=== PATIENT | male | born 1945 | race Caucasian/White ===

== ENCOUNTER 2017-04-23 08:38 | Day surgery (SDC) | payer OTHER | END 2017-04-23 23:01 | disposition home or self-care (01) | LOC: US 08:38 | PROVIDERS: Internal Medicine Gastroenterology; Radiology Diagnostic Radiology | PROC: 0FB03ZX Excision of Liver, Percutaneous Approach, Diagnostic (ICD-10-PCS; principal; 2017-04-23 10:00) | DX: K75.81 Nonalcoholic steatohepatitis (NASH) (principal); K74.0 Hepatic fibrosis; R74.8 Abnormal levels of other serum enzymes; E11.9 Type 2 diabetes mellitus without complications; I10 Essential (primary) hypertension; K74.60 Unspecified cirrhosis of liver | CPT/HCPCS: 47000; 76942; 83540; 88307; 88313 ==

== ENCOUNTER 2023-03-09 16:49 | Emergency (ER) | payer OTHER ==
[~2023-03-09] VITALS: Ht 182.9 cm; Wt 111.1 kg
[2023-03-09 18:49] VITALS: BP 123/78
== END 2023-03-09 18:41 | disposition home or self-care (01) ==
LOC: ER 16:49
DX: R07.89 Other chest pain (principal); E86.0 Dehydration; E11.9 Type 2 diabetes mellitus without complications; K70.31 Alcoholic cirrhosis of liver with ascites; R74.8 Abnormal levels of other serum enzymes
CPT/HCPCS: 36415; 80053; 82140; 83605; 85025; 85610; 85730; 99283

== ENCOUNTER 2023-03-22 15:33 | Inpatient (IN) | payer OTHER ==
[~2023-03-22] VITALS: Ht 182.9 cm; Wt 98.9 kg
[2023-03-22 16:02] LABS: BASOPHILS ABSOLUTE AUTO 0.03 K/mm3 (0.00-0.23); BASOPHILS PERCENT AUTO 0 % (0-2); EOSINOPHILS ABSOLUTE AUTO 0.04 K/mm3 (0.00-0.68); EOSINOPHILS PERCENT AUTO 0 % (0-6); Hematocrit 29.8 % (37.0-53.0); Hemoglobin 10.1 g/dL (13.5-17.5); IMMATURE GRAN ABSOLUTE AUTO 0.04 K/mm3 (0.00-0.10); IMMATURE GRAN PERCENT AUTO 0 % (0-1); LYMPHOCYTES ABSOLUTE AUTO 1.47 K/mm3 (0.84-5.20); LYMPHOCYTES PERCENT AUTO 14 % (21-46); MONOCYTES ABSOLUTE AUTO 0.77 K/mm3 (0.16-1.47); MONOCYTES PERCENT AUTO 7 % (4-13); Mean Corpuscular HGB 35.8 pg (26.0-34.0); Mean Corpuscular HGB Conc 33.9 g/dL (31.5-36.5); Mean Corpuscular Volume 106 fL (80-100); Mean Platelet Volume 9.6 fL (9.1-12.4); NEUTROPHILS PERCENT AUTO 78 % (41-73); Platelet Count 170 K/mm3 (150-400); RDW Coefficient Variation 15.6 % (11.7-14.2); RDW Standard Deviation 59.7 fL (35.1-46.3); Red Blood Cell Count 2.82 M/mm3 (4.30-5.90); White Blood Cell Count 10.75 K/mm3 (4.00-11.30)
[2023-03-22 17:06] LABS: Albumin, Blood 2.1 g/dL (3.4-5.0); Albumin/Globulin Ratio 0.4 (0.8-1.8); Bilirubin, Total 2.3 mg/dL (0.1-1.0); Bun/Creatinine Ratio 24.4 (12.0-20.0); Calcium, Blood 7.9 mg/dL (8.5-10.1); Creatinine, Blood 3.61 mg/dL (0.60-1.20); Globulin, Blood 5.3 g/dL (2.2-4.0); Potassium, Blood 5.6 mmol/L (3.5-5.5); Total Protein, Blood 7.4 g/dL (6.4-8.2)
[2023-03-22 18:58] LABS: Albumin/Globulin Ratio 0.4 (0.8-1.8); Bilirubin, Direct 1.2 mg/dL (0.0-0.3); Bilirubin, Indirect 1.1 mg/dL (0.1-0.7); Bilirubin, Total 2.3 mg/dL (0.1-1.0); Globulin, Blood 5.3 g/dL (2.2-4.0); Magnesium, Blood 2.7 mg/dL (1.6-2.4); Total Protein, Blood 7.3 g/dL (6.4-8.2)
[2023-03-22 18:59] LABS: Source, Urine Clean Catch
[2023-03-22 19:05] LABS: Appearance, Urine Hazy (Clear); Bilirubin, Urine Neg (Neg); Blood, Urine Neg (Neg); Color, Urine Yellow (P-Yellow); Glucose Qualitative, Urine Neg (Neg); Ketones, Urine Neg (Neg); Leukocyte Esterase, Urine Neg (Neg); Nitrite, Urine Neg (Neg); Protein, Urine Neg (Neg); Urobilinogen, Urine NORM (Normal)
[2023-03-22 19:11] LABS: International Normalized Ratio 1.52; Prothrombin Time Results 15.6 Sec (9.7-11.5)
[2023-03-22 19:12] LABS: Bacteria Few /hpf; Red Blood Cells, Urine 0-2 /hpf (0-2)
[2023-03-22 19:13] LABS: Squamous Epithelial Cells Rare /hpf (Few)
[2023-03-22] MEDS ORDERED: ALLOPURINOL100 M1 PO (19:43)
[2023-03-22] MEDS ORDERED: POTCHL20ER PO (19:43)
[2023-03-22] MEDS ORDERED: ALDACTONE100 MG PO (19:43)
[2023-03-22] MEDS ORDERED: AMLODIPINE BESY10 MG PO (19:43)
[2023-03-22] MEDS ORDERED: FUROSEMIDE40 MG PO (19:43)
[2023-03-22] MEDS ORDERED: ATOR10 PO (19:44)
[2023-03-22] MEDS ORDERED: LISI20 PO (19:44)
[2023-03-22 19:59] LABS: PCO2 Arterial 28.6 mmHg (35-45); PO2 Arterial 75.5 mmHg (80-100); pH Blood Arterial 7.46 (7.35-7.45)
[2023-03-22 22:05] VITALS: BP 120/83
[2023-03-23 02:33] VITALS: BP 87/52
[2023-03-23 04:50] VITALS: BP 96/66
[2023-03-23 05:26] LABS: Hematocrit 26.2 % (37.0-53.0); Hemoglobin 8.7 g/dL (13.5-17.5)
[2023-03-23 05:48] LABS: Alanine Aminotransfer (ALT/SGP 22 U/L (12-78); Albumin, Blood 1.9 g/dL (3.4-5.0); Albumin/Globulin Ratio 0.4 (0.8-1.8); Alk Phos 105 U/L (50-136); Anion Gap 6 mmol/L (6-16); Aspartate Aminotrans (AST/SGOT 35 U/L (12-37); Bilirubin, Total 2.4 mg/dL (0.1-1.0); Blood Urea Nitrogen 85 mg/dL (8-24); Bun/Creatinine Ratio 24.9 (12.0-20.0); CO2, Blood 23 mmol/L (21-32); Calcium, Blood 7.6 mg/dL (8.5-10.1); Chloride, Blood 110 mmol/L (98-108); Creatinine, Blood 3.42 mg/dL (0.60-1.20); Globulin, Blood 4.8 g/dL (2.2-4.0); Glomerular Filtration Rate 18 (60-); Glucose, Blood 114 mg/dL (70-99); Magnesium, Blood 2.6 mg/dL (1.6-2.4); Phosphorus, Blood 4.7 mg/dL (2.5-4.9); Potassium, Blood 5.4 mmol/L (3.5-5.5); Sodium, Blood 139 mmol/L (136-145); Total Protein, Blood 6.7 g/dL (6.4-8.2)
[2023-03-23 07:22] VITALS: BP 104/65
--- NOTE | 2023-03-23 09:00 | NUR ---
pt laying in bed, at bedside, a/ox4, pleasant and cooperative with care, follows commands well, denies pain, lungs are clear dim in bases, resp even and unlabored, no cough noted, on r/a, hrr, murmur noted, edema noted to b/l let, ppp+1, cap refill <3sec, vs stable, afebrile, iv site is clear and patent, btx4, abd distended, somewhat firm, report last bm two days ago, and is voiding via valencia cath, urine is clear froy, skin slightly jaundice, has a sore to his coccyx with mepilex in place, snehal gomez call light in reach.
[2023-03-23 12:41] VITALS: BP 104/56
[2023-03-23 14:45] VITALS: BP 111/72
--- NOTE | 2023-03-23 18:59 | NUR ---
pt resting in bed most of the day, no complaints of pain, has asked to be repositioned a few times, no acute changes this shift, call light in reach.
[2023-03-23 20:35] VITALS: BP 110/70
[2023-03-24 04:27] VITALS: BP 101/66
--- NOTE | 2023-03-24 04:34 | NUR ---
1900: ASSUMED CARE OF PT, BEDSIDE REPORT RECEIVED FROM VARGHESE RN. PT IS FOUND TO BE LAYING IN BED ON HIS LEFT SIDE. A/O, BREATHING IS AND SHALLOW, UNLABORED. ABDOMEN IS DISTENDED AND FIRM. PT DENIES DISCOMFORT DURING THE SHIFT. COUGHING OFF/ON. HONEY PROVIDED WITH POSSITIVE EFFECT. PT WAS ALBE TO SLEEP. CATHETER CARE PROVIDED, DRESSING TO COCCYX CHANGED.PT DENIES PAIN. SAFETY MEASURES TAKEN, CALL LIGHT AND BEDSIDE TABLE WTIHIN REACH. NEEDS ADDRESSED THROUGHOUT SHIFT.
[2023-03-24 05:42] LABS: Hematocrit 26.4 % (37.0-53.0)
[2023-03-24 06:50] LABS: Albumin, Blood 2.2 g/dL (3.4-5.0); Anion Gap 7 mmol/L (6-16); Blood Urea Nitrogen 83 mg/dL (8-24); Bun/Creatinine Ratio 27.7 (12.0-20.0); CO2, Blood 22 mmol/L (21-32); Calcium, Blood 7.6 mg/dL (8.5-10.1); Chloride, Blood 109 mmol/L (98-108); Glomerular Filtration Rate 21 (60-); Glucose, Blood 129 mg/dL (70-99); Magnesium, Blood 2.5 mg/dL (1.6-2.4); Phosphorus, Blood 4.8 mg/dL (2.5-4.9); Potassium, Blood 4.4 mmol/L (3.5-5.5); Sodium, Blood 138 mmol/L (136-145)
[2023-03-24 07:17] VITALS: BP 110/72
[2023-03-24 13:20] VITALS: BP 94/57
[2023-03-24 15:30] VITALS: BP 114/68
[2023-03-24 17:28] VITALS: BP 112/69
--- NOTE | 2023-03-24 17:53 | NUR ---
SHIFT SUMMARY: PATIENT A/OX4, ANSWER TO QUESTIONS APPROPRIATELY AND ABLE TO MAKE NEEDS KNOWN. PATIENT IS CALM, PLEASANT AND COOPERATIVE c CARE. PATIENT ABLE TO SIT UP IN THE RECLINER CHAIR TODAY FOR ABOUT 5 HRS AND TRNASFERRED BACK IN BED c SBA AND FWW. PATIENT HAS PLUS 2 EDEMA TO BLE'S, PLUS 2 PITTING EDEMA TO FEET, ABDOMEN IS FIRM AND MODERATE DISTENDED. PATIENT RECEIVED 2 DOSE OF ALBUMIN, IV DIURITICS AND SCHEDULED MEDS PER EMAR. PATIENT HAS RICHARDS CATHETER FOR ACUTE RETENTION, PATENT AND DRAINING YELLOW c A TOTAL OF 1500 MLS URINE OUTPUT THIS SHIFT. PATIENT REPORTS DRY NON PRODUCTIVE COUGH, STATED "I FEEL LIKE THE PLEGHM JUST SITTING DOWN MY THROAT AND I CANNOT GET RID OF IT." NOTIFIED DR. RICHARDSON REGARDING THIS ISSUE. RECEIVED ORDER GUAIFENESIN PO 600 MG BID, GIVEN TO PATIENT c SLIGHT EFFECT. PATIENT HAS NO COMPLAINTS OR DENIES ANY NEW CONCERN THIS SHIFT. VITAL SIGNS REVIEWED. PIV TO RAC SALINE LOCKED. CALL LIGHT IN REACH.
[2023-03-25 02:33] VITALS: BP 94/62
--- NOTE | 2023-03-25 04:10 | NUR ---
1900: ASSUMED CARE OF PT, REPORT RECEIVED FROM DAY SHIFT RN. PT IS FOUND TO A/O, LAYING IN BED WITH HOB ELEVATED. INDWELLING CATHETER IN PLACE, DRAINING CLEAR YELLOW URINE. RICHARDS CARE AND STAT LOCK CHANGED BY REACTOR OPERATOR AT START OF SHIFT, PT TOLERATED WELL. REPORTS PRESSURE IN ABDOMEN IS DECREASED TODAY FROM DIURESIS. ABLE TO MOVE SELF IN BED WITH SOME DIFFICULTY, ASSISTED NEEDED. PT WITH COUGH IN CLAIMS ASSOCIATE HOURS. HONEY PROVIDED WITH RESOLUTION OF COUGH. NEEDS ADDRESSED THROUGHOUT SHIFT. CALL LIGHT AND BEDSIDE TABLE WITHIN REACH. BED ALARM IS ON.
[2023-03-25 06:03] LABS: Hematocrit 27.6 % (37.0-53.0); Hemoglobin 9.3 g/dL (13.5-17.5)
[2023-03-25 06:25] LABS: Albumin, Blood 2.3 g/dL (3.4-5.0); Anion Gap 5 mmol/L (6-16); Blood Urea Nitrogen 76 mg/dL (8-24); Bun/Creatinine Ratio 30.2 (12.0-20.0); CO2, Blood 26 mmol/L (21-32); Calcium, Blood 7.8 mg/dL (8.5-10.1); Chloride, Blood 108 mmol/L (98-108); Creatinine, Blood 2.52 mg/dL (0.60-1.20); Glomerular Filtration Rate 26 (60-); Glucose, Blood 128 mg/dL (70-99); Magnesium, Blood 2.3 mg/dL (1.6-2.4); Phosphorus, Blood 4.5 mg/dL (2.5-4.9); Potassium, Blood 3.9 mmol/L (3.5-5.5); Sodium, Blood 139 mmol/L (136-145)
[2023-03-25 08:34] VITALS: BP 115/69
[2023-03-25 12:55] VITALS: BP 101/60
[2023-03-25] MEDS ORDERED: GUAI600T33 PO (14:22)
[2023-03-25] MEDS ORDERED: BUME2 PO (14:22)
[2023-03-25] MEDS ORDERED: MIRALAX17 GM PO (14:23)
[2023-03-25] MEDS ORDERED: MIDO5 PO (14:23)
--- NOTE | 2023-03-25 14:58 | NUR ---
SHIFT/DISCHARGE SUMMARY: PATIENT A/OX4, CALM, PLEASANT AND COOPERATIVE c CARE. PATIENT USES CALL LIGHT APPROPRIATELY AND ABLE TO MAKE NEEDS KNOWN. PATIENT DENIES CP/PRESSURE, SOB, DIZZINESS, AND GENERALIZED PAIN. PATIENT HAS OCCASIONAL NONPRODUCTIVE COUGH. PATIENT RECEIVED ONE DOSE OF IV ALBUMIN, IV DIURETICS AND SCHEDULED MEDS PER EMAR. PATIENT ABDOMINAL DISTENTION, LEGS AND FEET EDEMA HAS IMPROVED. PATIENT HAS RICHARDS FOR ACUTE RETENTION WAS PLACED IN ED, PATENT AND DRAINING YELLOW c A TOTAL OF 1000 MLS URINE OUTPUT THIS SHIFT. PER DR. RICHARDSON PATIENT WILL BE DISCHARGING c RICHARDS AND TO FOLLOW c UROLOGIST. PATIENT KIDNEY FUNCTIONS SLIGHTLY IMPROVED. PER DR. DOBBINS IT'S OKAY FOR PATIENT TO BE DISCHARGE AND TO FOLLOW c HIM ON SUNDAY AT 1400. PATIENT AGREED c THE PLAN OF CARE AND REQUESTED TO GO HOME TODAY. PIV TO JARRED MANND. PATIENT DISCHARGE HOME. DISCHARGE INSTRUCTIONS PACKET GIVEN TO PATIENT/DAUGHTER AT BEDSIDE. EDUCATE PATIENT/DAUGHTER REGARDING ADMITTING DX'S OF ACUTE KIDNEY INJURY, S/S, TX, FR OF 1L, TAKE THE MEDICATION PRESCRIBED, TO FOLLOW-UP c DR. DOBBINS ON SUNDAY AT [address] MARTIN'S OFFICE TO MAKE AN APPOINTMENT, AND CATHETER CARE. PATIENT AND DAUGHTER VERBALIZES UNDERSTANDING AND NO FURTHER QUESTIONS. RX WAS FAXED TO PATIENT PREFERRED PHARMACY ([facility] ALL PATIENT PERSONAL BELONGINGS WERE SENT HOME c THE PATIENT. PATIENT LEFT THE ROOM AT 1500 AND WAS TRANSPORTED VIA WHEELCHAIR BY JANINA JEAN-BAPTISTE TO PATIENT ENTRANCE.
== END 2023-03-25 14:55 | disposition home or self-care (01) | DRG 682 ==
LOC: ER 15:33 → MEDS 19:53
PROVIDERS: Internal Medicine Nephrology; Physician Assistant; Student in an Organized Health Care Education/Training Program; ADMIT Internal Medicine
DX: N17.9 Acute kidney failure, unspecified (principal); K76.7 Hepatorenal syndrome; E87.20 Acidosis, unspecified; R18.8 Other ascites; E87.3 Alkalosis; E87.5 Hyperkalemia; E11.22 Type 2 diabetes mellitus with diabetic chronic kidney disease; I12.9 Hypertensive chronic kidney disease with stage 1 through stage 4 chronic kidney disease, or unspecified chronic kidney disease; N18.9 Chronic kidney disease, unspecified; D63.1 Anemia in chronic kidney disease; F10.10 Alcohol abuse, uncomplicated; K74.60 Unspecified cirrhosis of liver; K42.9 Umbilical hernia without obstruction or gangrene; I95.9 Hypotension, unspecified; E88.09 Other disorders of plasma-protein metabolism, not elsewhere classified; M10.9 Gout, unspecified; R33.9 Retention of urine, unspecified; Z79.811 Long term (current) use of aromatase inhibitors; Z79.899 Other long term (current) drug therapy; Z71.51 Drug abuse counseling and surveillance of drug abuser; Z79.4 Long term (current) use of insulin; Z98.890 Other specified postprocedural states
CPT/HCPCS: 36415; 36600; 51702; 51798; 71046; 76770; 80053; 80069; 80076; 81001; 82550; 82803; 82947; 83605; 83735; 83880; 84100; 84300; 84550; 85014; 85018; 85025; 85610; 93005; 93010; 96361; 96374; 96375; 99285-25; A9270; G0103; J0881; J1644; J1815; J2354; J7060; J7799; P9047

== ENCOUNTER → 2023-03-30 | Outpatient (CLI) | payer OTHER ==
[~2023-03-30] MED LIST: ALDACTONE100 MG PO; ALLOPURINOL100 M1 PO; AMLODIPINE BESY10 MG PO; ATOR10 PO; BUME2 PO; FUROSEMIDE40 MG PO; GUAI600T33 PO; LISI20 PO; MIDO5 PO; MIRALAX17 GM PO; POTCHL20ER PO
[2023-03-30 15:34] LABS: Creatinine Urine 34.9 mg/dL (27.00-270.00); Microalbumin, Urine Quant. 11.1 mg/L (0.000-20.000); Protein, Urine Quantitative 7.4 mg/dL (0.0-11.9)
== END | disposition home or self-care (01) ==
LOC: LAB SHORT 10:50 → LAB 10:50 → LAB FUT 03-27 15:45
PROVIDERS: Internal Medicine Nephrology
DX: N18.30 Chronic kidney disease, stage 3 unspecified (principal); D63.1 Anemia in chronic kidney disease; N25.81 Secondary hyperparathyroidism of renal origin; E55.9 Vitamin D deficiency, unspecified; E78.00 Pure hypercholesterolemia, unspecified; R76.9 Abnormal immunological finding in serum, unspecified; R94.6 Abnormal results of thyroid function studies; D51.8 Other vitamin B12 deficiency anemias; D52.8 Other folate deficiency anemias
CPT/HCPCS: 81050; 82043; 82570; 84156

== ENCOUNTER 2023-04-14 08:36 | Inpatient (IN) | payer OTHER ==
[~2023-04-14] VITALS: Ht 182.9 cm; Wt 93.0 kg
[2023-04-14] VITALS (7 sets, daily range): BP systolic 76–103; BP diastolic 55–74
[2023-04-14] MEDS ORDERED: FUROSEMIDE40 MG PO (09:06)
[2023-04-14] MEDS ORDERED: SPIR25 PO (09:07)
[2023-04-14 09:38] LABS: BASOPHILS ABSOLUTE AUTO 0.02 K/mm3 (0.00-0.23); BASOPHILS PERCENT AUTO 0 % (0-2); EOSINOPHILS ABSOLUTE AUTO 0.02 K/mm3 (0.00-0.68); EOSINOPHILS PERCENT AUTO 0 % (0-6); Hematocrit 28.6 % (37.0-53.0); Hemoglobin 9.5 g/dL (13.5-17.5); IMMATURE GRAN ABSOLUTE AUTO 0.04 K/mm3 (0.00-0.10); IMMATURE GRAN PERCENT AUTO 0 % (0-1); LYMPHOCYTES ABSOLUTE AUTO 1.35 K/mm3 (0.84-5.20); LYMPHOCYTES PERCENT AUTO 10 % (21-46); MONOCYTES ABSOLUTE AUTO 0.67 K/mm3 (0.16-1.47); MONOCYTES PERCENT AUTO 5 % (4-13); Mean Corpuscular HGB 36.4 pg (26.0-34.0); Mean Corpuscular HGB Conc 33.2 g/dL (31.5-36.5); Mean Corpuscular Volume 110 fL (80-100); Mean Platelet Volume 10.3 fL (9.1-12.4); NEUTROPHILS ABSOLUTE AUTO 11.51 K/mm3 (1.96-9.15); NEUTROPHILS PERCENT AUTO 85 % (41-73); NRBC ABSOLUTE 0.04 K/mm3 (0.00-0.02); NRBC Auto 0.3 /100 WBC (0.0-0.2); Platelet Count 96 K/mm3 (150-400); RDW Coefficient Variation 19.4 % (11.7-14.2); RDW Standard Deviation 75.1 fL (35.1-46.3); Red Blood Cell Count 2.61 M/mm3 (4.30-5.90); White Blood Cell Count 13.61 K/mm3 (4.00-11.30)
[2023-04-14 09:56] LABS: Albumin, Blood 1.7 g/dL (3.4-5.0); Albumin/Globulin Ratio 0.4 (0.8-1.8); Bilirubin, Total 6.3 mg/dL (0.1-1.0); Creatinine, Blood 1.32 mg/dL (0.60-1.20); Globulin, Blood 4.8 g/dL (2.2-4.0); Potassium, Blood 4.5 mmol/L (3.5-5.5); Total Protein, Blood 6.5 g/dL (6.4-8.2)
[2023-04-14 12:42] LABS: Influenza A, PCR NEGATIVE (NEGATIVE); Influenza B, PCR NEGATIVE (NEGATIVE); Resp Syncytial Virus, PCR NEGATIVE (NEGATIVE); SARS-Cov-2 (COVID-19) PCR, MMC NEGATIVE (NEGATIVE)
--- NOTE | 2023-04-14 17:03 | NUR ---
I ASSUMED CARE OF THE PT. REPORT RECIEVED FROM BRENDAN Daniel RN.
[2023-04-14 20:01] LABS: Source, Urine Foley catheter
[2023-04-14 20:10] LABS: Blood, Urine 5+ (Neg); Glucose Qualitative, Urine Neg (Neg); Ketones, Urine 1+ (Neg); Leukocyte Esterase, Urine 3+ (Neg); Nitrite, Urine Pos (Neg); Protein, Urine 4+ (Neg); Urobilinogen, Urine 4+ (Normal)
[2023-04-14 20:17] LABS: Appearance, Urine Hazy (Clear); Bilirubin, Urine 2+ (Neg); Color, Urine Amber (P-Yellow)
[2023-04-14 20:18] LABS: Bacteria Many /hpf; Squamous Epithelial Cells Few /hpf (Few); Transitional Epithelial Cells Rare /hpf (0-Rare); White Blood Cells, Urine 25-50 /hpf (0-5)
[2023-04-15] VITALS (15 sets, daily range): BP systolic 73–190; BP diastolic 39–90
[2023-04-15 04:05] LABS: BASOPHILS ABSOLUTE AUTO 0.02 K/mm3 (0.00-0.23); BASOPHILS PERCENT AUTO 0 % (0-2); EOSINOPHILS PERCENT AUTO 0 % (0-6); Hematocrit 29.7 % (37.0-53.0); Hemoglobin 10.1 g/dL (13.5-17.5); IMMATURE GRAN ABSOLUTE AUTO 0.09 K/mm3 (0.00-0.10); IMMATURE GRAN PERCENT AUTO 1 % (0-1); LYMPHOCYTES ABSOLUTE AUTO 1.75 K/mm3 (0.84-5.20); LYMPHOCYTES PERCENT AUTO 10 % (21-46); MONOCYTES PERCENT AUTO 6 % (4-13); Mean Corpuscular HGB 36.5 pg (26.0-34.0); Mean Corpuscular Volume 107 fL (80-100); Mean Platelet Volume 10.3 fL (9.1-12.4); NEUTROPHILS ABSOLUTE AUTO 14.71 K/mm3 (1.96-9.15); NEUTROPHILS PERCENT AUTO 84 % (41-73); NRBC ABSOLUTE 0.02 K/mm3 (0.00-0.02); NRBC Auto 0.1 /100 WBC (0.0-0.2); Platelet Count 76 K/mm3 (150-400); RDW Standard Deviation 74.5 fL (35.1-46.3); Red Blood Cell Count 2.77 M/mm3 (4.30-5.90); White Blood Cell Count 17.57 K/mm3 (4.00-11.30)
[2023-04-15 04:30] LABS: Bun/Creatinine Ratio 19.3 (12.0-20.0); Calcium, Blood 7.7 mg/dL (8.5-10.1); Creatinine, Blood 2.02 mg/dL (0.60-1.20); Potassium, Blood 3.7 mmol/L (3.5-5.5)
--- NOTE | 2023-04-15 06:37 | NUR ---
SHIFT SUMMARY PT ALERT AND ORIENTED X 4, COOPERATIVE WITH CARE, AND ABLE TO MAKE NEEDS KNOWN. ROBI. HE IS ON 2L AND MAINTAINING 02 SATURATION ABOVE 92%, OCCASIONAL SOB. HIS HR HAS BEEN SR 80'S AND HAS DENIED CHEST PAIN/PRESSURE. HIS BP HAS BEEN SOFT. AT BEGINNING OF SHIFT I CALLED REGARDING PT HAVING SOFT BP'S AND NO MIDADRINE ORDERED FOR NIGHT TIME LIKE HE DOES DURING THE DAY TIME. MD ORDERED 1 TIME PRN DOSE OF MIDODRINE FOR MAINTAINED MAP <65. JUST BEFORE 0400 PT HAD MAINTAINED MAP OF 63 AND PT MEDICATED PER EMAR. MAP CAME UP TO >65. PTS ABDOMEN IS DISTENDED AND UMBILICAL HERNIA IS PRESENT. CHRONIC RICHARDS IN PLACE AND DRAINING MINIMAL AMOUNTS OF TEA COLORED URINE, URINE SAMPLE SENT TO LAB AT BEGINNING OF SHIFT PER ORDERS. PT HAS SEVERAL SORES, SEE CHART FOR DETAILS, ALL DRESSINGS C/D/I, AND PT WAS TURNED Q2 HOURS. IV TO L WRIST PATENT/FLUSHED/AND SALINE LOCKED. PT CURRENTLY RESTING IN BED AND CALL LIGHT IS WITHIN REACH.
--- NOTE | 2023-04-15 18:03 | NUR ---
SHIFT SUMMARY; ASSUMED CARE AT 0700. A/A/OX4. 2L 02 VIA VT TO MAINTAIN SATS OF >92%. ASSISTED TO RECLINER TODAY WITH 1 PERSON ASSIST. CHRONIC RICHARDS IN PLACE, DRAINING MINIMAL TEA COLORED URINE TO GRAVITY. APPROX 100 OUT DURING SHIFT. SPOKE WITH DR. MCCORMACK REGARDING LOW URINE OUTPUT. EXTRA DOSE OF BUMEX ORDERED TODAY AND GIVEN. MIDODRINE INCREASED TO 10MG TODAY. MINIMAL PO INTAKE, STATES DOESN'T FEEL HUNGRY. MOVES SELF ON GURNEY, PLEASANT AND COOPERATIVE WITH CARE, ABLE TO MAKE NEEDS KNOWN. WILL CONTINUE TO MONITOR AND TREAT UNTIL CHANGE OF SHIFT.
[2023-04-15 22:47] LABS: BASOPHILS ABSOLUTE AUTO 0.03 K/mm3 (0.00-0.23); BASOPHILS PERCENT AUTO 0 % (0-2); EOSINOPHILS PERCENT AUTO 0 % (0-6); Hematocrit 31.8 % (37.0-53.0); Hemoglobin 10.9 g/dL (13.5-17.5); IMMATURE GRAN ABSOLUTE AUTO 0.15 K/mm3 (0.00-0.10); IMMATURE GRAN PERCENT AUTO 1 % (0-1); LYMPHOCYTES ABSOLUTE AUTO 2.22 K/mm3 (0.84-5.20); LYMPHOCYTES PERCENT AUTO 9 % (21-46); MONOCYTES ABSOLUTE AUTO 1.82 K/mm3 (0.16-1.47); MONOCYTES PERCENT AUTO 7 % (4-13); Mean Corpuscular HGB 36.8 pg (26.0-34.0); Mean Corpuscular HGB Conc 34.3 g/dL (31.5-36.5); Mean Corpuscular Volume 107 fL (80-100); Mean Platelet Volume 9.8 fL (9.1-12.4); NEUTROPHILS PERCENT AUTO 83 % (41-73); NRBC ABSOLUTE 0.03 K/mm3 (0.00-0.02); NRBC Auto 0.1 /100 WBC (0.0-0.2); Platelet Count 94 K/mm3 (150-400); RDW Coefficient Variation 19.4 % (11.7-14.2); RDW Standard Deviation 74.5 fL (35.1-46.3); Red Blood Cell Count 2.96 M/mm3 (4.30-5.90); White Blood Cell Count 24.52 K/mm3 (4.00-11.30)
[2023-04-15 23:05] LABS: Albumin/Globulin Ratio 0.4 (0.8-1.8); Bilirubin, Total 7.2 mg/dL (0.1-1.0); Bun/Creatinine Ratio 17.5 (12.0-20.0); Calcium, Blood 7.7 mg/dL (8.5-10.1); Creatinine, Blood 2.75 mg/dL (0.60-1.20); Globulin, Blood 4.7 g/dL (2.2-4.0); Potassium, Blood 4.1 mmol/L (3.5-5.5); Total Protein, Blood 6.7 g/dL (6.4-8.2)
[2023-04-16] VITALS (30 sets, daily range): BP systolic 71–117; BP diastolic 41–82
[2023-04-16 04:08] LABS: Bicarbonate Venous 23.2 mmol/L (24.0-30.0); PCO2 Venous 22.1 mmHg (38-42); pH Blood Venous 7.55 (7.34-7.37)
[2023-04-16 04:24] LABS: BASOPHILS ABSOLUTE AUTO 0.04 K/mm3 (0.00-0.23); BASOPHILS PERCENT AUTO 0 % (0-2); EOSINOPHILS PERCENT AUTO 0 % (0-6); Hemoglobin 10.9 g/dL (13.5-17.5); IMMATURE GRAN ABSOLUTE AUTO 0.19 K/mm3 (0.00-0.10); IMMATURE GRAN PERCENT AUTO 1 % (0-1); LYMPHOCYTES ABSOLUTE AUTO 1.88 K/mm3 (0.84-5.20); LYMPHOCYTES PERCENT AUTO 8 % (21-46); MONOCYTES ABSOLUTE AUTO 1.61 K/mm3 (0.16-1.47); MONOCYTES PERCENT AUTO 7 % (4-13); Mean Corpuscular HGB 36.9 pg (26.0-34.0); Mean Corpuscular HGB Conc 34.1 g/dL (31.5-36.5); Mean Corpuscular Volume 109 fL (80-100); Mean Platelet Volume 10.4 fL (9.1-12.4); NEUTROPHILS ABSOLUTE AUTO 18.57 K/mm3 (1.96-9.15); NEUTROPHILS PERCENT AUTO 83 % (41-73); NRBC ABSOLUTE 0.05 K/mm3 (0.00-0.02); NRBC Auto 0.2 /100 WBC (0.0-0.2); Platelet Count 103 K/mm3 (150-400); RDW Coefficient Variation 19.5 % (11.7-14.2); RDW Standard Deviation 76.4 fL (35.1-46.3); Red Blood Cell Count 2.95 M/mm3 (4.30-5.90); White Blood Cell Count 22.29 K/mm3 (4.00-11.30)
--- NOTE | 2023-04-16 04:33 | NUR ---
2062 - CALLED INTO PT ROOM BY PRIMARY RN - PT WITH MICHELINE ALCALA, MINIMALLY RESPONSIVE. MAP IN 50S. RECHECKED X2. PT UNABLE TO VERBALIZE. NOTIFIED DR. MARTIN REGARDING PT MENTATION CHANGE AND VITALS - PER MD MOVE TO ICU FOR PRESSORS DUE TO NOT ABLE TO FOLLOW COMMANDS AND UNSAFE SWALLOW. PT TO ICU 429 - TRIED BOTH PHONE NUMBERS FOR KEDAR CORREA ON [employer]OGR[employer]. MESSAGE LEFT FOR RETURN CALL AT HOME PHONE #, OTHER PHONE NUMBER DID NOT HAVE VOICEMAIL. UPDATED ICU STAFF
[2023-04-16 04:40] LABS: Albumin, Blood 1.9 g/dL (3.4-5.0); Anion Gap 18 mmol/L (6-16); Blood Urea Nitrogen 52 mg/dL (8-24); Bun/Creatinine Ratio 17.3 (12.0-20.0); CO2, Blood 23 mmol/L (21-32); Calcium, Blood 7.7 mg/dL (8.5-10.1); Chloride, Blood 92 mmol/L (98-108); Glomerular Filtration Rate 21 (60-); Glucose, Blood 65 mg/dL (70-99); Magnesium, Blood 2.1 mg/dL (1.6-2.4); Phosphorus, Blood 5.4 mg/dL (2.5-4.9); Potassium, Blood 4.4 mmol/L (3.5-5.5); Sodium, Blood 133 mmol/L (136-145)
--- NOTE | 2023-04-16 05:10 | NUR ---
ASSUMPTION OF CARE PT ARRIVED TO ICU AT 0420. PT TRANSFERRED TO ICU BED VIA SLIDER SHEET. BEDSDIE SHIFT REPORT RECEIVED FROM RESIDENTIAL ENERGY AUDITOR. PT RESPONDS TO VERBAL STIMULI WITH SINGULAR WORDS. PT UNABLE TO ANSWER QUESTIONS OR FOLLOW COMANDS. WHEN ASKED HIS NAME THE PT RESPONDS WITH "YEAH". PT WILL TURN HEAD IN DIRECTION OF VOICE BUT DOES NOT MAKE EYE CONTACT. PUPILS 4MM BILATERALLY SLUGGISH TO LIGHT HR 90-100'S SINUS, MAP >65, SBP 90'S. PT ON 6LPM VIA NC UPON ARRIVAL, TITRATED DOWN TO 2LPM. OXYGEN SATURATION >95%. ABDOMEN IS ROUND AND SOFT, BOWEL TONES HYPOACTIVE. RICHARDS IN PLACE WITH MINIMAL TEA COLORED URINE OUTPUT. PT HAS MULTIPLE PRESSURE WOUNDS, SKIN TEARS, AND BRUISING TO BODY, PICTURES IN CHART. PT HAS 3+ EDEMA TO BLE. PIV TO LEFT WRIST SL. BED IN LOWEST POSITION, CARE CONTINUES.
--- NOTE | 2023-04-16 05:20 | NUR ---
SHIFT SUMMARY AT BEGINNING OF SHIFT PT WAS ALERT AND ORIENTED TO HIMSELF. WHEN ASKED WHAT YEAR IT WAS, HE GAVE A YEAR THAT WAS NOT 2023 AND WHEN ASKED WHAT DATE THAT WAS HE SAID HIS AND HIS 'S ANNIVERSARY. WHEN ASKED WHERE HE WAS HE WOULD SAY AT HOME. PT MADE SEVERAL ATTEMPTS TO GET OUT OF BED AND WHEN ASKED WHERE HE WAS GOING HE WOULD SAY HE WAS GOING HOME. WAS ABLE TO RE-DIRECT PT AT BEGINNING OF SHIFT AND HE WOULD FOLLOW MOST COMMANDS. THIS RN TOOK CARE OF PT YESTERDAY AND HIS MENTATION HAD DECREASED SINCE YESTERDAY. MD WAS NOTIFIED AND ORDERS PLACED. AMMONIA LEVELS CAME BACK HIGH AND A LACTULOSE ENEMA WAS ORDERED. AT THAT POINT PT WAS NOT EASILY RE-DIRECTABLE BEGINNING OF SHIFT AND HE WAS FOLLOWING LESS COMMANDS. LACTULOSE ENEMA WAS PERFORMED VIA RECTAL TUBE THAT WAS PLACED FOR ADMINISTRATION OF ENEMA. RECTAL TUBE REMOVED ONCE LACTULOSE ENEMA COMPLETE. AFTER PT CLEANED UP FROM ENEMA, HE FELL ASLEEP, SYMMETRICAL RISE AND FALL OF CHEST WITH RR OF 16, AND O2 SATURATION ABOVE 90% ON 2L. UNTIL AROUND 0330 PT'S BP WAS SOFT WITH MAP AT OR ABOVE 65, MD AWARE AND PT MEDICATED PER EMAR. AROUND 0330 PT LAYING IN BED WITH THE LIGHTS OFF AND HIS EYES OPEN. THIS RN ASKED PT IF HE WAS OKAY AND HE MADE A MOANING SOUND. HIS EYES WERE GLAZED OVER AND HE WAS NO LONGER MAKING EYE CONTACT AND WAS STARING OFF. HE WAS NO LONGER ORIENTED. WHEN ASKED HIS NAME HE WOULD SAY "HUH" OR "WHAT" OR MAKING A MOANING SOUND. HIS BREATHING BECAME TACHYPNEIC. PT'S BP WAS 72/41 WITH MAP BELOW 65. PT WAS PLACED IN [place] POSITION. MD NOTIFIED AND ORDERS PLACED TO TRANSFER PT TO ICU. PT BECAME RESTLESS AND UNCONSOLABLE. PT PLACED ON MOBILE MONITOR AND MOBILE 02 DURING TRANSFER TO ICU. REPORT GIVEN TO ICU NURSE AND CHART HANDED OFF TO ICU NURSE. ALL SHIFT PT WAS JAUNDICE ALL OVER. PRESSURE SORES THAT WERE PRESENT UPON ADMISSION WERE CLEANED AND BANDAGES CHANGED. PT HAD ABOUT 30CC INTAKE OF WATER THIS SHIFT WITH HIS MEDICATION, HE WAS OFFERED MORE FLUIDS AND REFUSED MULTIPLE TIMES. 75ML TEA COLORED URINE EMPTIED FROM PT'S RICHARDS CATHETER THIS SHIFT. MD WAS NOTIFIED OF PT'S URINALYSIS REPORT, ORDERS GIVEN, AND PT WAS MEDICATED PER EMAR. HE HAD APPROXIMATELY 40ML IV INPUT FROM MEDICATION. PT WAS TURNED Q2 HRS, AND CALL LIGHT WAS ALWAYS WITHIN REACH.
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
--- NOTE | 2023-04-16 05:38 | NUR ---
PT UPDATE PT HAS ONE PIV TO LEFT WRIST, FLUSHES WELL BUT DOES NOT DRAW. THERE HAS BEEN MULTIPLE ATTEMPTS TO OBTAIN ANOTHER PIV WITH NO SUCCESS.
--- NOTE | 2023-04-16 06:58 | NUR ---
CENTRAL LINE DOCTOR CRITSY VERBALIZED THAT CENTRAL LINE IS IN GOOD PLACEMENT AND ABLE TO USE
--- NOTE | 2023-04-16 07:00 | NUR ---
ASSUME CARE: I have assumed care of this patient.
--- NOTE | 2023-04-16 07:00 | NUR ---
ASSUME CARE: I have assumed care of this patient.
--- NOTE | 2023-04-16 07:37 | NUR ---
SHIFT SUMMARY PT RESTING IN BED. PT NOT RESPONSIVE TO VERBAL STIMULI, DOES NOT FOLLOW COMMANDS. PT OCCASIONALLY MOANS OUT AND MOVES ABOUT IN BED. PT DOES NOT MAKE EYE CONTACT OR TURN HEAD TOWARDS VOICE. HR 90'S, MAP >65. ABDOMEN ROUND AND SOFT. RICHARDS PATENT WITH MINIMAL TEA COLORED URINE OUTPUT. DR. TEIXEIRA CALLED, DISCUSSED PT BLOOD SUGAR, BLOOD PRESSURE, AND LABS. DR. TEIXEIRA TO BEDSIDE, RIJ PLACED, X-RAY COMPLETE AND VERIFIED BY DR. TEIXEIRA. BED IN LOWEST POSITION, BEDSIDE SHIFT REPORT GIVEN TO DAYSHIFT RN.
--- NOTE | 2023-04-16 07:51 | NUR ---
SANDOSTATIN REQUESTED FROM PHARMACY
--- NOTE | 2023-04-16 09:37 | NUR ---
Pt placed on comfort care, family at bedside. Palliative care will remain available.
--- NOTE | 2023-04-16 15:25 | NUR ---
TRANSFER: Pt transferred to room 308 from ICU 14 via hospital bed by [facility]. Report was called to medical floor RN
--- NOTE | 2023-04-16 17:10 | NUR ---
TRANSFER FROM ICU AT 1515- PT ARRIVED ON MEDICAL FLOOR. PT IS UNRESPONSIVE ON RA. FAMILY AT BEDSIDE. RESPERS=20. NO SOB. TWO RN SKIN CHECK DONE WITH JANINA VANEGAS AND JANINA CANELA. MULTIPLE BRUISES/SKIN TEARS ON BILAT FOREARMS/UPPERARMS. COCCYX HAS X2 STAGE 2 PRESSURE ULCERS PRESENT. PT HAS WOUND TO LEFT GROIN. ALL DRESSINGS CHANGED. PT IS MOTTLING ON HIS BILAT KNEES. PT IS SEVERELY JAUDDICED.
--- NOTE | 2023-04-16 17:53 | NUR ---
SUMMARY- PT MEDICATED WITH 10MG OF ROXANOL THIS SHIFT SINCE TRANSFER FOR SOB. PT NONRESPONSIVE.
--- NOTE | 2023-04-16 23:26 | NUR ---
"Spiritual Care | EOL While initially called back for another Pt. [place] nurse requested I come to see this Pt. who had just passed. Pts. daughter is present and welcomes my visit. Daughter displayed approriate grief considering the Pts. recent demise. Faclitated a life review and prayed for the family, while also blessing the Pt. More family would be coming including the Pts. spouse. Gave EOL education, and left a sheet with local homes for the family to decide. Pts. daughter vewrbalized that she would inform the nursing staff of the home choice."
--- NOTE | 2023-04-16 23:47 | NUR ---
1900: ASSUMED CARE OF PT. BEDSIDE REPORT RECEIVED FROM DAY SHIFT JANINA GRIER. PT IS LAYING IN BED WITH HOB ELEVATED. RESPIRATION ARE EVEN AT 22BPM. PT IS NON RESPONSIVE AT THIS TIME. DAUGHTER IS SITTING AT THE BEDSIDE. NEEDS ARE MET. INDWELLING CATHETER IN PLACE WITH MINIMAL DARK BROWN OUTPUT. PT MEDICATED FOR INCREASED WOB AND DISCOMFORT. TURNED IN BED FOR SKIN INTEGRITY TO THE LEFT SIDE. 2253: PT FOUND TO BE WITHOUT RESPIRATION OR HEARTBEAT. DAUGHTER AT THE BEDSIDE. SECOND NURSE CHECK BY MICROSOFT WINDOWS ENGINEER MADDIE. HOSPITALIST NOTIFIED AT 2304. DAUGTHER WILL NOTIFY FAMILY. OLIVER AT THE BEDSIDE.
== END 2023-04-16 22:54 | DRG 432 ==
LOC: ER 08:36 → PCU 12:06 → ICUE 12:06 → PCU 14:58 → ICUE 04-16 04:20 → MEDS 04-16 15:15
PROVIDERS: Emergency Medicine; Family Medicine; ADMIT Internal Medicine
PROC: 3E033XZ Introduction of Vasopressor into Peripheral Vein, Percutaneous Approach (ICD-10-PCS; principal; 2023-04-14)
PROC: 02HV33Z Insertion of Infusion Device into Superior Vena Cava, Percutaneous Approach (ICD-10-PCS; 2023-04-16)
PROC: B548ZZA Ultrasonography of Superior Vena Cava, Guidance (ICD-10-PCS; 2023-04-16)
DX: K70.31 Alcoholic cirrhosis of liver with ascites (principal); J96.01 Acute respiratory failure with hypoxia; J81.1 Chronic pulmonary edema; N17.9 Acute kidney failure, unspecified; R57.9 Shock, unspecified; E87.3 Alkalosis; Z66 Do not resuscitate; Z51.5 Encounter for palliative care; K76.82 Hepatic encephalopathy; K70.40 Alcoholic hepatic failure without coma; D69.59 Other secondary thrombocytopenia; D63.1 Anemia in chronic kidney disease; I12.9 Hypertensive chronic kidney disease with stage 1 through stage 4 chronic kidney disease, or unspecified chronic kidney disease; E11.22 Type 2 diabetes mellitus with diabetic chronic kidney disease; N18.9 Chronic kidney disease, unspecified; R16.1 Splenomegaly, not elsewhere classified; M10.9 Gout, unspecified; Z87.891 Personal history of nicotine dependence; Z11.52 Encounter for screening for COVID-19
CPT/HCPCS: 0241U; 36415; 36556; 51702; 71045; 76857; 80048; 80053; 80069; 81001; 82140; 82803; 82947; 83605; 83735; 85025; 87077; 87086; 87186; 93005; 93010; 94762; 96374-59; 99285-25; A9270; C1751; J0696; J1120; J1644; J2060; J2270; J2354; P9047